=== PATIENT | female | born 1950 | race African-American/Black ===

== ENCOUNTER 2020-02-21 11:30 | Observation (INO) ==
[2020-02-21] MEDS ORDERED: ASPIRIN 325 MG TABLET PO STA (11:34)
[2020-02-21] MEDS ORDERED: ONDANSETRON 4 MG/2 ML VIAL IV ONE (11:39)
[2020-02-21] MEDS ORDERED: MECLIZINE 25 MG TABLET PO STA (12:04)
[2020-02-21] MEDS ORDERED: SODIUM CHLORIDE 0.9% 1,000 ML IV STA (12:04)
[2020-02-21 12:20] LABS: Basophils % 0.1 % (0.0-0.8); Eosinophils % 0.1 % (0.00-10.9); Hematocrit 42.7 VOL% (35.7-47.0); Hemoglobin 13.4 GM/DL (12.0-16.0); Immature Granulocytes % 0.4 %; Immature Granulocytes Absolute 0.04 #; Mean Corpuscular HGB Conc 31.4 GM/DL (32-36); Mean Corpuscular Volume 90.5 FL (87-102); Mean Platelet Volume 11.5 FL (9.6-12.0); Monocytes % 4.1 % (1.7-12.7); Neutrophils % 74.3 % (38.7-73.9); Platelet Count 242 T/CUMM (130-400); Red Blood Count 4.72 MC/CUMM (3.8-5.5); White Blood Count 9.5 T/CUMM (4-12)
[2020-02-21 12:46] LABS: Albumin 3.9 G/DL (3.4-5.0); Bilirubin,Total 0.8 MG/DL (0.2-1.0); Calcium 9.2 MG/DL (8.5-10.1); Osmolality,Calculated 282.5 MOS/KG (273-304); Total Protein 7.5 G/DL (6.4-8.3)
[2020-02-21] MEDS ORDERED: ONDANSETRON 4 MG/2 ML VIAL IV STA (14:19)
[2020-02-21 14:30] LABS: Apearance,Urine CLEAR (Clear); Bacteria,Urine Occasional /HPF (Few); Bilirubin,Urine Negative (Negative); Blood, Urine Negative (Negative); Glucose,Urine (UA) Negative (Negative); Ketones,Urine Negative (Negative); Mucus,Urine Few /LPF (Occasional); Nitrite,Urine Negative (Negative); Protein,Urine Negative; RBC,Urine 4 /HPF (0-4); Squamous Epithelial Cell,Urine Few /HPF (0-10); Urine Color Yellow (Yellow); Urine Specific Gravity 1.024 (1.001-1.035); Urine Urobilinogen < 2.0 EU/DL (0.2-1.0); WBC,Urine 7 /HPF (0-6)
[2020-02-21] MEDS ORDERED: ONDANSETRON 4 MG/2 ML VIAL IV PRN (15:16)
[2020-02-21] MEDS ORDERED: GLUCAGON 1 MG VIAL IM PRN (15:16)
[2020-02-21] MEDS ORDERED: DEXTROSE 10% 250 ML BAG IV PRN (15:16)
[2020-02-21] MEDS ORDERED: MECLIZINE 25 MG TABLET PO PRN (15:19)
[2020-02-21 16:03] LABS: Risk Ratio 3.28; Thyroid Stimulating Hormone 0.664 uIU/ml (0.358-3.74); VLDL CHOLESTEROL 32.4 MG/DL
[2020-02-21] MEDS: SODIUM CHLORIDE 0.9% 1,000 ML IV SCH (18:24)
[2020-02-21] MEDS ORDERED: ENOXAPARIN 40 MG/0.4 ML SYRINGE SUBCUT SCH (21:00)
[2020-02-21] MEDS ORDERED: ROSUVASTATIN 20 MG TABLET PO SCH (21:00)
[2020-02-22 01:52] LABS: Barbiturates Screen,Urine Negative (Negative); Benzodiazepines Screen,Urine Negative (Negative); Cannabinoid Screen,Urine Negative (Negative); Opiate Screen,Urine Negative (Negative); Phencyclidine Screen,Urine Negative (Negative)
[2020-02-22 05:04] LABS: Calcium 8.8 MG/DL (8.5-10.1); Osmolality,Calculated 279.4 MOS/KG (273-304)
[2020-02-22] MEDS: SODIUM CHLORIDE 0.9% 1,000 ML IV SCH (06:26)
[2020-02-22] MEDS ORDERED: DEXTROSE 10% 250 ML BAG IV PRN (07:00)
[2020-02-22] MEDS ORDERED: POTASSIUM CHLORIDE 20 MEQ TABLET PO ONE (07:01)
[2020-02-22] MEDS ORDERED: amLODIPine 5 MG TABLET PO SCH (09:00)
[2020-02-22] MEDS ORDERED: PANTOPRAZOLE 40 MG TABLET PO SCH (09:00)
[2020-02-22] MEDS ORDERED: amLODIPine 10 MG TABLET PO SCH (09:00)
[2020-02-22 11:50] VITALS: BP 118/61
== END 2020-02-22 15:35 | disposition home or self-care (01) ==
LOC: N.EDINP 11:30 → N.ED 11:30 → N.2E 17:43
PROVIDERS: ADMIT Family Medicine; ATTEND Family Medicine